=== PATIENT | female | born 1990 | race Two or more races ===

== ENCOUNTER 2019-03-22 16:11 | Emergency (ER) | payer OTHER ==
[~2019-03-22] VITALS: Ht 157.5 cm; Wt 107.5 kg
== END 2019-03-22 21:21 | disposition home or self-care (01) ==
LOC: ER 16:11
DX: N93.8 Other specified abnormal uterine and vaginal bleeding (principal)

== ENCOUNTER 2021-09-27 19:14 | Emergency (ER) | payer OTHER ==
[~2021-09-27] VITALS: Ht 157.5 cm; Wt 111.1 kg
[2021-09-27] MEDS ORDERED: STOOL SOFTENER250 MG PO (23:04)
[2021-09-27] MEDS ORDERED: IRON325 MG PO (23:04)
== END 2021-09-27 23:10 | disposition home or self-care (01) ==
LOC: ER 19:14
DX: O20.9 Hemorrhage in early pregnancy, unspecified (principal); Z3A.01 Less than 8 weeks gestation of pregnancy

== ENCOUNTER 2021-10-01 20:31 | Emergency (ER) | payer OTHER ==
[~2021-10-01] VITALS: Ht 157.5 cm; Wt 113.9 kg
[~2021-10-01 20:31] MED LIST: IRON325 MG PO; STOOL SOFTENER250 MG PO
== END 2021-10-01 22:34 | disposition home or self-care (01) ==
LOC: ER 20:31
DX: O20.9 Hemorrhage in early pregnancy, unspecified (principal); Z3A.01 Less than 8 weeks gestation of pregnancy